=== PATIENT | female | born 1955 | race Caucasian/White ===

== ENCOUNTER 2023-07-11 18:01 | Observation (INO) | payer MEDICARE, OTHER ==
[~2023-07-11] VITALS: Ht 165.1 cm; Wt 64.0 kg
[2023-07-11] MEDS ORDERED: EPINEPHrine INJECTION 1 MG/ML AMP IM ONE (18:30)
[2023-07-11] MEDS ORDERED: dexAMETHasone INJ 10 MG/ML 1 ML VIAL IV ONE (18:30)
[2023-07-11] MEDS ORDERED: NS IV 1000 ML 1,000 ML IV STA (18:30)
[2023-07-11] MEDS ORDERED: FAMOTIDINE INJ 20MG/2ML VIAL IV STA (18:30)
[2023-07-11] MEDS ORDERED: diphenhydrAMINE INJ 50 MG/ML VIAL IV STA (18:30)
--- NOTE | 2023-07-11 18:37 | ED Integumentary General ---
General Chief Complaint: Allergic Reaction Stated Complaint: HIVES Nursing Triage Note: Patient c/o Rash to bilat. arms, thighs, back, and Abd. that started 2 days ago. Patient states the rash itches and states she has been taking Benadryl with not much relief. Patient states she had her last chemo Tx. 2 wks ago. Source: patient History of Present Illness Date Seen by Provider: Jul 11, 2023 Time Seen by Provider: 18:23 Initial Comments PT ARRIVES VIA POV FROM HOME C/O GENERALIZED HIVES X 2 DAYS HAS SWELLING TO HANDS AND FEET THROAT FEELS "BRUISED" WHEN SHE SWALLOWS, BUT IS ABLE TO SWALLOW. NO SWELLING TO FACE, LIPS OR TONGUE NO NAUSEA/VOMITING--SHE HAS BEEN EATING AND DRINKING WELL. HAS HAD SOME LIGHTHEADEDNESS BUT NO SYNCOPE NO SHORTNESS OF BREATH OR WHEEZING SHE HAS BEEN TAKING BENADRYL 50 MG EVERY 4 HOURS WITH MINIMAL RELIEF SHE WENT TO [facility] AND THEY SENT HER HERE NO HISTORY OF SIMILAR PT WAS DX WITH BREAST CANCER IN [facility] SHE HAS HAD RIGHT MASTECTOMY 04/27/23 SHE RECEIVED HER SECOND ROUND OF CHEMO 2 WEEKS AGO--SHE DID HAVE A REACTION DURING THE INFUSION--FACE GOT RED AND ITCHY AND SHE FELT DIZZY AND ALMOST PASSED OUT. THEY HELD IT FOR A LITTLE BIT, THEN EVENTUALLY FINISHED CHEMO SHE TAKES PREDNISONE RIGHT BEFORE AND RIGHT AFTER CHEMO SHE IS ALSO GETTING NEULASTA AFTER EACH CHEMO SESSION SHE DOES NOT KNOW WHAT HER LAST WBC COUNT WAS. SHE DOES NOT HAVE ANY OTHER MEDICAL PROBLEMS SHE TAKES VITAMINS DAILY AND HER PRE-AND POST-CHEMO MEDICATIONS. 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 Allergies and Home Medications Allergies Coded Allergies: No Known Drug Allergies (Unverified , 07/11/23) Review of Systems Review of Systems Constitutional: see HPI EENTM: see HPI Respiratory: no symptoms reported; No cough, No phlegm, No stridor, No wheezing Cardiovascular: no symptoms reported Gastrointestinal: no symptoms reported Genitourinary: no symptoms reported Musculoskeletal: see HPI Skin: see HPI Psychiatric/Neurological: No Symptoms Reported Endocrine: No Symptoms Reported Hematologic/Lymphatic: No Symptoms Reported Past Bdzlwio-Wczkiw-Bquclw Hx Patient Social History Tobacco Use?: No Use of E-Cig and/or Vaping dev: No Substance use?: No Alcohol Use?: Yes Alcohol Frequency: Once in a while Immunizations Up To Date Influenza Vaccine Up-to-Date: Yes; Up-to-Date Past Medical History Surgery/Hospitalization HX: Breast CA, GERD Rt. Masectomy Physical Exam Vital Signs Vital Signs - First Documented 07/11/23 18:10 Temp 37.3 Pulse 122 Resp 18 B/P (MAP) 113/73 (86) O2 Delivery Room Air Capillary Refill : General Appearance: WD/WN, no apparent distress, other (VERY ANXIOUS AND TREMULOUS; CONSTANTLY SCRATCHING ALL OVER) HEENT: PERRL/EOMI, pharynx normal, other (NO SWELLING TO FACE, OR ORAL MUCOSA BUT HAS MILD SWELLING TO LIPS--ESPECIALLY LOWER LIP. PT ABLE TO HANDLE SECRETIONS) Neck: normal inspection Cardiovascular: no murmur, tachycardia Respiratory: normal breath sounds, no respiratory distress, no accessory muscle use Gastrointestinal: non tender, soft Back: no CVA tenderness Extremities: normal range of motion, normal capillary refill, other (MODERATE SWELLING TO HANDS AND FEET) Neurologic/Psychiatric: special delivery messenger II-XII nml as tested, no motor/sensory deficits, alert, oriented x 3 Skin: warm/dry, rash (DIFFUSE URTICARIA, MAINLY TRUNK, THIGHS, ARMS, INCLUDING FEET/SOLES AND HANDS/PALMS. FACE AND SCALP ARE SPARED. ) Progress/Results/Core Measures Results/Orders Lab Results Laboratory Tests Test 07/11/23 18:38 07/11/23 19:05 07/11/23 19:18 07/11/23 19:22 Range/Units White Blood Count 37.5 *H 4.3-11.0 10^3/uL Red Blood Count 4.88 3.80-5.11 10^6/uL Hemoglobin 15.1 11.5-16.0 g/dL Hematocrit 45 35-52 % Mean Corpuscular Volume 92 80-99 fL Mean Corpuscular Hemoglobin 31 25-34 pg Mean Corpuscular Hemoglobin Concent 34 32-36 g/dL Red Cell Distribution Width 13.3 10.0-14.5 % Platelet Count 231 130-400 10^3/uL Mean Platelet Volume 9.4 9.0-12.2 fL Immature Granulocyte % (Auto) 6 % Neutrophils (%) (Auto) 83 H 42-75 % Lymphocytes (%) (Auto) 8 L 12-44 % Monocytes (%) (Auto) 3 0-12 % Eosinophils (%) (Auto) 0 0-10 % Basophils (%) (Auto) 0 0-10 % Neutrophils # (Auto) 31.3 H 1.8-7.8 10^3/uL Lymphocytes # (Auto) 2.9 1.0-4.0 10^3/uL Monocytes # (Auto) 1.0 0.0-1.0 10^3/uL Eosinophils # (Auto) 0.0 0.0-0.3 10^3/uL Basophils # (Auto) 0.0 0.0-0.1 10^3/uL Immature Granulocyte # (Auto) 2.3 H 0.0-0.1 10^3/uL Neutrophils % (Manual) 81 % Lymphocytes % (Manual) 10 % Monocytes % (Manual) 6 % Eosinophils % (Manual) 0 % Basophils % (Manual) 0 % Band Neutrophils 3 % Blood Morphology Comment NORMAL Sodium Level 137 135-145 MMOL/L Potassium Level 3.8 3.6-5.0 MMOL/L Chloride Level 105 98-107 MMOL/L Carbon Dioxide Level 20 L 21-32 MMOL/L Anion Gap 12 5-14 MMOL/L Blood Urea Nitrogen 11 7-18 MG/DL Creatinine 0.76 0.60-1.30 MG/DL Estimat Glomerular Filtration Rate 85 BUN/Creatinine Ratio 14 Glucose Level 177 H 70-105 MG/DL Calcium Level 8.8 8.5-10.1 MG/DL Corrected Calcium 9.0 8.5-10.1 MG/DL Magnesium Level 2.0 1.6-2.4 MG/DL Total Bilirubin 0.3 0.1-1.0 MG/DL Aspartate Amino Transf (AST/SGOT) 18 5-34 U/L Alanine Aminotransferase (ALT/SGPT) 16 0-55 U/L Alkaline Phosphatase 152 H 40-136 U/L Total Protein 6.2 L 6.4-8.2 GM/DL Albumin 3.8 3.2-4.5 GM/DL My Orders Orders - FABIOLA SLATER DO Ed Iv/Invasive Line Start (07/11/23 18:30) Monitor-Rhythm Ecg Trace Only (07/11/23 18:30) Cbc With Automated Diff (07/11/23 18:30) Comprehensive Metabolic Panel (07/11/23 18:30) Magnesium (07/11/23 18:30) Diphenhydramine Injection (Diphenhydram (07/11/23 18:30) Dexamethasone Injection (Dexamethasone (07/11/23 18:30) Ns Iv 1000 Ml (Ns Iv 1000 Ml) (07/11/23 18:30) Famotidine Injection (Famotidine Injec (07/11/23 18:30) Epinephrine 1 Mg Injection (Epinephrine (07/11/23 18:30) Manual Differential (07/11/23 18:38) Covid 19 Inhouse Test (07/11/23 18:51) Blood Culture (07/11/23 18:51) Urinalysis (07/11/23 18:51) Urine Culture (07/11/23 18:51) Protime With Inr (07/11/23 18:51) Partial Thromboplastin Time (07/11/23 18:51) Chest 1 View, Ap/Pa Only (07/11/23 18:51) Ed Iv/Invasive Line Start (07/11/23 18:51) Ed Iv/Invasive Line Start (07/11/23 18:51) Vital Signs Adult Sepsis Patie Q15M (07/11/23 18:51) O2 (07/11/23 18:51) Remove Rings In Anticipation O (07/11/23 18:51) Lactic Acid Analyzer (07/11/23 18:51) Influenza A And B By Pcr (07/11/23 18:51) Medications Given in ED Current Medications Medications Dose Ordered Sig/Marcella Route Start Time Stop Time Status Last Admin Dose Admin Dexamethasone Sodium Phosphate 20 mg ONCE ONCE IV 07/11/23 18:30 07/11/23 18:32 DC 07/11/23 18:43 20 MG Epinephrine HCl 0.3 mg ONCE ONCE IM 07/11/23 18:30 07/11/23 18:32 DC 07/11/23 18:42 0.3 MG Vital Signs/I&O 07/11/23 07/11/23 18:10 18:42 Temp 37.3 Pulse 122 113 Resp 18 B/P (MAP) 113/73 (86) 111/77 O2 Delivery Room Air Blood Pressure Mean: 86 Progress Progress Note : Progress Note VITALS ON ARRIVAL : TEMP 37.3=99.2,, HR122, RR 18, BP 113/73, O2 SAT 99% ON ROOM AIR GIVEN: -DECADRON -BENADRYL -PEPCID -EPINEPHRINE -IV FLUIDS Diagnostic Imaging Comments CXR--PER RADIOLOGIST REPORT AT 1928 Findings: No focal airspace disease in the visualized lungs. No pleural effusion or pneumothorax. Normal cardiomediastinal silhouette. Impression: 1. No acute cardiopulmonary process by portable radiography. Reviewed: Reviewed by Me Departure Impression Primary Impression: Urticaria Additional Impressions: BREAST CANCER ON CHEMO Leukocytosis NEULASTA THERAPY Departure-Patient Inst. Referrals: RUEL BAKER APRN (PCP) Primary Care Physician FABIOLA SLATER DO Jul 11, 2023 18:37
[2023-07-11 18:49] LABS: BASOPHILS % (AUTO) 0 % (0-10); EOSINOPHILS % (AUTO) 0 % (0-10); HEMATOCRIT 45 % (35-52); HEMOGLOBIN 15.1 g/dL (11.5-16.0); LYMPHOCYTES # (AUTO) 2.9 10^3/uL (1.0-4.0); LYMPHOCYTES % (AUTO) 8 % (12-44); MEAN CORPUSCULAR HEMOGLOBIN 31 pg (25-34); MEAN CORPUSCULAR HGB CONC 34 g/dL (32-36); MEAN CORPUSCULAR VOLUME 92 fL (80-99); MEAN PLATELET VOLUME 9.4 fL (9.0-12.2); MONOCYTES % (AUTO) 3 % (0-12); NEUTROPHILS # (AUTO) 31.3 10^3/uL (1.8-7.8); NEUTROPHILS % (AUTO) 83 % (42-75); PLATELET COUNT 231 10^3/uL (130-400)
[2023-07-11 18:50] LABS: WHITE BLOOD COUNT 37.5 10^3/uL (4.3-11.0)
[2023-07-11 19:03] LABS: BAND NEUTROPHILS 3 %; BASOPHILS % (MANUAL) 0 %; EOSINOPHILS % (MANUAL) 0 %; LYMPHOCYTES % (MANUAL) 10 %; MONOCYTES % (MANUAL) 6 %; NEUTROPHILS % (MANUAL) 81 %; RBC MORPH NORMAL
[2023-07-11 19:04] LABS: ALBUMIN 3.8 GM/DL (3.2-4.5); BILIRUBIN,TOTAL 0.3 MG/DL (0.1-1.0); CALCIUM 8.8 MG/DL (8.5-10.1); CREATININE SERUM 0.76 MG/DL (0.60-1.30); POTASSIUM 3.8 MMOL/L (3.6-5.0); TOTAL PROTEIN 6.2 GM/DL (6.4-8.2)
--- NOTE | 2023-07-11 19:10 | Diagnostic Imaging Report ---
CHEST 1 VIEW, AP/PA ONLY Indication: Leukocytosis on chemotherapy Comparison: None available. Findings: No focal airspace disease in the visualized lungs. No pleural effusion or pneumothorax. Normal cardiomediastinal silhouette. Impression: 1. No acute cardiopulmonary process by portable radiography. Dictated by: Dictated on workstation # [id number]
[2023-07-11 19:36] LABS: BILIRUBIN,URINE NEGATIVE (NEGATIVE); CLARITY,URINE CLEAR; COLOR,URINE YELLOW; GLUCOSE, URINE (UA) NEGATIVE (NEGATIVE); KETONES,URINE TRACE (NEGATIVE); LEUKOCYTE ESTERASE ,URINE TRACE (NEGATIVE); NITRITE,URINE NEGATIVE (NEGATIVE); PROTEIN,URINE 1+ (NEGATIVE)
[2023-07-11 19:37] LABS: BACTERIA,URINE FEW /HPF; SQUAMOUS EPITHELIAL CELL,UR 0-2 /HPF
[2023-07-11] MEDS ORDERED: CEFEPIME INJECTION 1,000 MG in NS (IVPB) 50 ML 50 ML IV ONE (19:45)
[2023-07-11] MEDS ORDERED: LORazepam 0.5 MG TABLET PO PRN (21:30)
[2023-07-11] MEDS ORDERED: hydrOXYzine 25 MG CAPSULE PO PRN (21:30)
[2023-07-11] MEDS ORDERED: NS IV 500 ML 500 ML IV PRN (21:30)
[2023-07-11] MEDS ORDERED: ANTACID SUSPENSION 30 ML UDC PO PRN (21:30)
[2023-07-11] MEDS ORDERED: ACETAMINOPHEN 325 MG TABLET PO PRN (21:30)
[2023-07-11] MEDS ORDERED: ONDANSETRON 4 MG ORAL DISSOLVE TABLET PO PRN (21:30)
[2023-07-11] MEDS ORDERED: BISACODYL 10 MG SUPPOSITORY PR PRN (21:30)
[2023-07-11] MEDS ORDERED: LACTULOSE SYRUP 10GM/15ML 30ML UDC PO PRN (21:30)
[2023-07-11] MEDS ORDERED: ONDANSETRON INJECTION 4 MG/2 ML (SDV) IV PRN (21:30)
[2023-07-11] MEDS ORDERED: MELATONIN 3 MG TABLET PO PRN (21:30)
[2023-07-11] MEDS ORDERED: CALCIUM CARBONATE 500 MG CHEW TABLET PO PRN (21:30)
[2023-07-11] MEDS ORDERED: diphenhydrAMINE INJ 50 MG/ML VIAL IVP SCH (21:30)
[2023-07-11] MEDS ORDERED: MILK OF MAGNESIA 400 MG/5 ML 30 ML UDC PO PRN (21:30)
[2023-07-11] MEDS ORDERED: HYDROmorphone INJECTION 2 MG/ML VIAL IV PRN (21:30)
[2023-07-11] MEDS ORDERED: oxyCODONE IMMEDIATE RELEASE 5 MG TABLET PO PRN (21:30)
--- NOTE | 2023-07-11 21:33 | Tele-ICU Consult ---
History of Present Illness History of Present Illness Date Seen by Provider: Jul 11, 2023 Time Seen by Provider: 21:26 History of Present Illness eICU Critical Care Consult 68 yo F came to ED with cc of generalized hives.also "bruised throat but is able to swallow. Does not have swelling of lips or tongue. No SOB, Has Hx of Breast Ca, getting chemo, also getting Neulasta. At home has been taking Benadryl 50 mg every 4 hours During last round of chemo infusion 2 weeks ago became flushed, had itching and light headed. Got prednisone before and after chemo\\ CXR showed no acute process, no eosinophilia No known drug allergies Other PMH GERD, Breast Ca Allergies and Home Medications Allergies Coded Allergies: No Known Drug Allergies (Unverified , 07/11/23) Past Medical/Social/Family Hx Patient Social History Tobacco Use?: No Use of E-Cig and/or Vaping dev: No Substance use?: No Alcohol Use?: Yes Alcohol Frequency: Once in a while Immunizations Up To Date Influenza Vaccine Up-to-Date: Yes; Up-to-Date Current Status Communicates: Verbally Primary Language: Beninese Preferred Spoken Language: Beninese Is interpretation needed?: No Implanted or Applied Medical D: None Review of Systems Constitutional: see HPI EENTM: see HPI Respiratory: see HPI Cardiovascular: see HPI Gastrointestinal: see HPI Genitourinary: see HPI Musculoskeletal: see HPI Skin: see HPI Psychiatric/Neurological: See HPI Focused Exam Lactate Level 07/11/23 19:05: Lactic Acid Level 2.30*H Height, Weight, BMI Height: '" Weight: lbs. oz. kg; 13.00 BMI Method: Lactic Acid Level Laboratory Tests Test 07/11/23 19:05 Lactic Acid Level 2.30 MMOL/L (0.50-2.00) *H Exam Exam Patient acknowledged, consented, and participated in this virtual visit which was conducted using real time audio/video Vital Signs Date Time Temp Pulse Resp B/P (MAP) Pulse Ox O2 Delivery O2 Flow Rate FiO2 07/11/23 20:49 37.3 107 18 106/74 95 Room Air 07/11/23 18:42 113 111/77 07/11/23 18:10 37.3 122 18 113/73 (86) Room Air Height & Weight Height: '" Weight: lbs. oz. kg; 13.00 BMI Method: General Appearance: Other (marked itching) HEENT: Other (ED note describes lower lip swelling but can swallow) Respiratory: Lungs Clear Cardiovascular: Regular Rate, Rhythm, Tachycardia Gastrointestinal: non tender, soft Skin: Rash Lymphatic: Other (rash on trunk, thighs, arms, feet and hands) Results Lab Laboratory Tests 07/11/23 18:38 Assessment/Plan Assessment/Plan DIffuse urticaria, from chemo? Getting Famotidine, Decadron IV, IV Benadyl, received a dose of IM epi, Getting IV Cefepime Spoke with RN, rash is looking better Critical Care: Critically Ill Patient Time spent with patient (mins): 25 TOR MYERS MD Jul 11, 2023 21:33
[2023-07-11] MEDS: NS IV 1000 ML 1,000 ML IV SCH (21:48)
[2023-07-11] MEDS: FAMOTIDINE INJ 20MG/2ML VIAL IVP SCH (22:17)
[2023-07-11 23:01] VITALS: BP 117/52
[2023-07-11] MEDS ORDERED: RT-Ipratropium/Albuterol NEB 3 ML VIAL INH PRN (23:15)
[2023-07-11] MEDS ORDERED: LACTATED RINGERS 1,000 ML 1,000 ML IV ONE (23:45)
[2023-07-11] MEDS: dexAMETHasone INJ 4 MG/ML SDV IV SCH (23:47)
--- NOTE | 2023-07-12 00:10 | Progress Note ---
Standard Progress Note Progress Notes/Assess & Plan Date Seen by a Provider: Jul 12, 2023 Time Seen by a Provider: 00:09 Progress/Assessment & Plan called for lactate 2.31, repeat 2.30, most likely from dehydration, will give 500 mL bolus of LR, repeat LA 2 hours after that TOR MYERS MD Jul 12, 2023 00:10
[2023-07-12] MEDS ORDERED: LACTATED RINGERS 1,000 ML 1,000 ML IV SCH ×2 (00:15→03:30)
[2023-07-12] MEDS: diphenhydrAMINE INJ 50 MG/ML VIAL IVP PRN (00:17)
[2023-07-12] MEDS ORDERED: LACTATED RINGERS 1,000 ML 500 ML IV ONE (00:30)
[2023-07-12 02:13] LABS: ALBUMIN 3.3 GM/DL (3.2-4.5); POTASSIUM 4.2 MMOL/L (3.6-5.0)
[2023-07-12 02:14] LABS: CALCIUM 8.4 MG/DL (8.5-10.1)
[2023-07-12 02:16] LABS: TOTAL PROTEIN 5.5 GM/DL (6.4-8.2)
[2023-07-12 02:17] LABS: BILIRUBIN,TOTAL 0.2 MG/DL (0.1-1.0)
[2023-07-12 02:19] LABS: CREATININE SERUM 0.66 MG/DL (0.60-1.30); PHOSPHORUS 1.9 MG/DL (2.3-4.7)
[2023-07-12 02:22] LABS: MAGNESIUM 1.8 MG/DL (1.6-2.4)
[2023-07-12 02:24] LABS: BASOPHILS % (AUTO) 0 % (0-10); EOSINOPHILS % (AUTO) 0 % (0-10); HEMATOCRIT 38 % (35-52); HEMOGLOBIN 12.7 g/dL (11.5-16.0); LYMPHOCYTES # (AUTO) 1.4 10^3/uL (1.0-4.0); LYMPHOCYTES % (AUTO) 4 % (12-44); MEAN CORPUSCULAR HEMOGLOBIN 31 pg (25-34); MEAN CORPUSCULAR HGB CONC 34 g/dL (32-36); MEAN CORPUSCULAR VOLUME 93 fL (80-99); MEAN PLATELET VOLUME 9.7 fL (9.0-12.2); MONOCYTES # (AUTO) 0.4 10^3/uL (0.0-1.0); MONOCYTES % (AUTO) 1 % (0-12); NEUTROPHILS # (AUTO) 33.7 10^3/uL (1.8-7.8); NEUTROPHILS % (AUTO) 90 % (42-75); PLATELET COUNT 178 10^3/uL (130-400)
[2023-07-12 02:26] LABS: WHITE BLOOD COUNT 37.6 10^3/uL (4.3-11.0)
--- NOTE | 2023-07-12 03:17 | Tele-ICU Progress Note ---
Subjective Date Seen by a Provider: Jul 12, 2023 Time Seen by a Provider: 03:14 Subjective/Events-last exam LA went up to 3.04, given bolus of LR, will give one more WBC 37, but could be due to many reasons, Got Neulasta, got IM epi, getting Decadron Pt appears comfortable on room air, P and BP normal, U/A 5-10 WBC's, On IV Cefepime will continue abx, give one more fluid bolus of LR Jaron Myers MD Sepsis Event Evaluation Height, Weight, BMI Height: '" Weight: lbs. oz. kg; 23.44 BMI Method: Focused Exam Lactate Level 07/11/23 19:05: Lactic Acid Level 2.30*H 07/11/23 21:52: Lactic Acid Level 2.31*H 07/12/23 01:56: Lactic Acid Level 3.04*H Lactic Acid Level Laboratory Tests Test 07/12/23 01:56 Lactic Acid Level 3.04 MMOL/L (0.50-2.00) *H Exam Exam Patient acknowledged, consented, and participated in this virtual visit which was conducted using real time audio/video Vital Signs Date Time Temp Pulse Resp B/P (MAP) Pulse Ox O2 Delivery O2 Flow Rate FiO2 07/12/23 02:00 77 15 109/70 (83) 96 Room Air 07/12/23 01:01 100 07/12/23 01:00 97 19 104/100 (101) 95 Room Air 07/12/23 00:00 89 19 105/81 (89) 95 Room Air 07/12/23 00:00 36.6 07/11/23 23:59 98 Room Air 07/11/23 23:01 37.0 90 98 21 07/11/23 23:00 89 18 108/66 (80) 95 Room Air 07/11/23 22:45 122 20 86/59 (68) 95 Room Air 07/11/23 22:30 111 24 110/70 (83) 95 Room Air 07/11/23 22:15 94 14 107/71 (83) 95 Room Air 07/11/23 22:00 37.2 90 16 117/52 (73) 98 Room Air 07/11/23 21:21 100 07/11/23 21:21 100 07/11/23 20:49 37.3 107 18 106/74 95 Room Air 07/11/23 18:42 113 111/77 07/11/23 18:10 37.3 122 18 113/73 (86) Room Air I & O 07/12/23 07:00 Intake Total 1450 ml Balance 1450 ml Height & Weight Height: '" Weight: lbs. oz. kg; 23.44 BMI Method: General Appearance: Other (marked itching) HEENT: Other (ED note describes lower lip swelling but can swallow) Respiratory: Lungs Clear Cardiovascular: Regular Rate, Rhythm, Tachycardia Gastrointestinal: non tender, soft Skin: Rash Lymphatic: Other (rash on trunk, thighs, arms, feet and hands) Results Lab Laboratory Tests 07/11/23 18:38 07/12/23 01:56 Assessment/Plan Assessment/Plan LA went up to 3.04, given bolus of LR, will give one more WBC 37, but could be due to many reasons, Got Neulasta, got IM epi, getting Decadron Pt appears comfortable on room air, P and BP normal, U/A 5-10 WBC's, On IV Cefepime will continue abx, give one more fluid bolus of LR Jaron Myers MD Critical Care: Critically Ill Patient Time spent with patient (mins): 20 TOR MYERS MD Jul 12, 2023 03:17
[2023-07-12] MEDS ORDERED: LACTATED RINGERS 1,000 ML 500 ML IV SCH (03:45)
[2023-07-12] MEDS: CEFEPIME INJECTION 1,000 MG in NS (IVPB) 50 ML 50 ML IV SCH ×3 (04:36→21:32)
[2023-07-12] MEDS: inSUlin ASPART 1 UNIT/0.01 ML (PER UNIT) SC SCH ×4 (05:05→21:32)
[2023-07-12] MEDS ORDERED: MAGNESIUM 1 GM/100 ML IVPB 100 ML IV SCH (06:00)
[2023-07-12] MEDS ORDERED: POTASSIUM CL 10MEQ/50ML IVPB 50 ML IV SCH (06:00)
[2023-07-12] MEDS ORDERED: POTASSIUM CHLORIDE 20 MEQ TABLET PO SCH (06:00)
[2023-07-12] MEDS: NS IV 1000 ML 1,000 ML IV SCH ×2 (06:04→09:41)
[2023-07-12] MEDS: dexAMETHasone INJ 4 MG/ML SDV IV SCH ×3 (06:04→17:33)
--- NOTE | 2023-07-12 06:25 | History & Physical-Hospitalist ---
History of Present Illness HPI/Chief Complaint Chief complaint: Severe urticaria possibly due to chemotherapy medication HPI this is a 68-year-old female with known breast cancer on chemotherapy who presented to the ER with severe urticaria requiring IV fluid IV steroids IV Pepcid and IV Benadryl. She had no signs of vasculitis. Her white blood cell count of 37,000 likely is from some sort of Neupogen or chemotherapy induced side effect. She did have evidence of a low level UTI cefepime was placed. Lactic acid elevation likely due to dehydration and allergic reaction not due to infectious causes. Currently she is doing much better cannot understand why she cannot go home today but I did tell her she can have rebound allergic reaction and urticaria. Source: patient Exam Limitations: no limitations Date Seen 07/12/23 Time Seen by a Provider: 11:00 Attending Physician Erica Castillo Aprn PCP Admitting Physician: Padmini Yi DO Attending Physician: Padmini Yi DO Referring Physician Date of Admission Jul 11, 2023 at 20:55 Home Medications & Allergies Home Medications Reviewed patient Home Medication Reconciliation performed by pharmacy medication reconciliations biometrics technician and/or nursing. Patients Allergies have been reviewed. Allergies Allergies Coded Allergies No Known Drug Allergies (Unverified07/11/23) Past Qgevayt-Ifddru-Mixztn Hx Patient Social History Marrital Status: Employed/Student: retired Tobacco Use?: No Smoking Status: Never a Smoker Use of E-Cig and/or Vaping dev: No Substance use?: No Alcohol Use?: Yes Alcohol Frequency: Once in a while Current Status Communicates: Verbally Primary Language: Irish Preferred Spoken Language: Irish Is interpretation needed?: No Implanted or Applied Medical D: None Past Medical History Breast Did You Recieve Any Treatments: Yes What Type of Treatment Did You: Chemotherapy Review of Systems Constitutional: see HPI, dizziness, malaise, weakness Skin: rash Physical Exam Physical Exam Vital Signs Vital Signs - First Documented 07/11/23 07/11/23 07/11/23 18:10 20:49 23:01 Temp 37.3 Pulse 122 Resp 18 B/P (MAP) 113/73 (86) Pulse Ox 95 O2 Delivery Room Air FiO2 21 Capillary Refill : Height, Weight, BMI Height: '" Weight: lbs. oz. kg; 23.44 BMI Method: General Appearance: Anxious, Mild Distress Eyes: Right Eye Normal Inspection, Right Eye PERRL HEENT: PERRL/EOMI, Normal ENT Inspection, Pharynx Normal, Moist Mucous Membranes Neck: Full Range of Motion, Normal Inspection, Non Tender Respiratory: Chest Non Tender, Lungs Clear, Normal Breath Sounds, No Accessory Muscle Use, No Respiratory Distress Cardiovascular: Regular Rate, Rhythm, No Edema, No Gallop, No JVD, No Murmur, Normal Peripheral Pulses Gastrointestinal: Normal Bowel Sounds, No Organomegaly, No Pulsatile Mass, Non Tender, Soft Back: Normal Inspection, No CVA Tenderness, No Vertebral Tenderness Extremity: Normal Capillary Refill, Normal Inspection, Normal Range of Motion, Non Tender, No Calf Tenderness, No Pedal Edema Neurologic/Psychiatric: Alert, Oriented x3, No Motor/Sensory Deficits, Normal Mood/Affect Skin: Normal Color, Warm/Dry, Rash (Urticaria legs and arms and torso) Lymphatic: No Adenopathy Results Results/Procedures Labs Laboratory Tests 07/11/23 18:38 07/12/23 01:56 Patient resulted labs reviewed. Assessment/Plan Admission Diagnosis Assessment: Severe urticaria likely due to breast cancer chemotherapy medication Anxiety Elevated white count likely due to some sort of Neupogen booster with chemotherapy treatment Early UTI Elevated lactic acid not due to sepsis or infectious causes Plan: Transfer to fourth floor Supportive care Hep-Lock IV fluid IV steroids along with IV Pepcid and scheduled Benadryl Admission Status: Observation PADMINI YI DO Jul 12, 2023 06:25
[2023-07-12] MEDS: DOCUSATE SODIUM 100 MG CAPSULE PO SCH ×2 (09:42→21:32)
[2023-07-12] MEDS: SENNOSIDES 8.6 MG TABLET PO SCH ×2 (09:42→21:32)
--- NOTE | 2023-07-12 10:04 | Tele-ICU Progress Note ---
Subjective Date Seen by a Provider: Jul 12, 2023 Time Seen by a Provider: 10:04 Subjective/Events-last exam (Tele-ICU Physician , Progress Note ) Service provided via interactive audio and video telecommunications E-CARE system to a patient admitted to ICU bed in [facility]. Patient is seen today due to persistent need of ICU care Available chart/ vitals / labs / Images reviewed Video assessment done using teleICU camera, rest of exam as per RN Discussed with RN Events overnight : Afebrile hemodynamically stable Respiratory - I/O = Drips: ns 125 Pressors- no Hospital course: (07/11) 68F Admitted for possible allergic reaction, possible sepsis ?UTI. Breast Cancer s/p mastectomy in April and last chemo 2wks ago--did have itchy face and almost passed out with last chemo. Benadryl not helping. Throat feels "bruised" when she swallows. On Neulasta A/P No SOB, Has Hx of Breast Ca, getting chemo, also getting Neulasta. At home has been taking Benadryl 50 mg every 4 hours During last round of chemo infusion 2 weeks ago became flushed, had itching and light headed. Got prednisone before and after chemo Now admitted with -DIffuse urticaria- received a dose of IM epi, steroids m benadryl , pepcid -CXR showed no acute process, no eosinophilia -from chemo? - improved this am , rash is looking better, no airway edema -cont Famotidine, ? decrease Decadron IV, prn Benadyl, received a dose of IM epi, Getting IV Cefepime UTI - cx pending - abx started stop IVF , PO OOB Lines : periph , (Central Line Necessity Reviewed) Delgado: void OG: Nutrition: po Analgesia: Anxiety/ delirium VTE Prophylaxis: anbulate Stress Ulcer Prophylaxis: na Plans in collaboration with bedside consultants and IM MDs. Discussed with RN to reach out if any questions or concerns Case and care daily discussed on multidisciplinary rounds ( RN, PharmD, Aquarist , Respiratory Therapy, ground worker ) A total of 15 minutes of critical care time was devoted to this patient today, required to treat and/or prevent further deterioration of critical care condition ( as above ) . I am remotely monitoring this patient from another state. I am unable to do the bedside exam, and history/physical and pertinent information is taken from other notes in the computer and bedside staff. Sepsis Event Evaluation Height, Weight, BMI Height: '" Weight: lbs. oz. kg; 23.44 BMI Method: Focused Exam Lactate Level 07/12/23 04:07: Lactic Acid Level 2.57*H 07/12/23 05:45: Lactic Acid Level 2.37*H 07/12/23 08:24: Lactic Acid Level 1.65 Lactic Acid Level Laboratory Tests Test 07/12/23 08:24 Lactic Acid Level 1.65 MMOL/L (0.50-2.00) Exam Exam Patient acknowledged, consented, and participated in this virtual visit which was conducted using real time audio/video Vital Signs Date Time Temp Pulse Resp B/P (MAP) Pulse Ox O2 Delivery O2 Flow Rate FiO2 07/12/23 10:00 107 27 187/95 (148) 98 Room Air 07/12/23 09:00 108 28 129/100 (112) 96 Room Air 07/12/23 08:00 36.3 07/12/23 08:00 76 9 129/78 (96) 92 Room Air 07/12/23 07:00 73 07/12/23 07:00 69 14 107/70 (86) 96 Room Air 07/12/23 06:00 70 21 108/71 (83) 95 Room Air 07/12/23 05:00 74 16 107/78 (88) 97 Room Air 07/12/23 04:00 36.8 07/12/23 04:00 70 10 95/66 (76) 94 Room Air 07/12/23 04:00 98 Room Air 07/12/23 03:00 74 19 104/68 (80) 96 Room Air 07/12/23 02:00 77 15 109/70 (83) 96 Room Air 07/12/23 01:01 100 07/12/23 01:00 97 19 104/100 (101) 95 Room Air 07/12/23 00:00 89 19 105/81 (89) 95 Room Air 07/12/23 00:00 36.6 07/11/23 23:59 98 Room Air 07/11/23 23:01 37.0 90 98 21 07/11/23 23:00 89 18 108/66 (80) 95 Room Air 07/11/23 22:45 122 20 86/59 (68) 95 Room Air 07/11/23 22:30 111 24 110/70 (83) 95 Room Air 07/11/23 22:15 94 14 107/71 (83) 95 Room Air 07/11/23 22:00 37.2 90 16 117/52 (73) 98 Room Air 07/11/23 21:21 100 07/11/23 21:21 100 07/11/23 20:49 37.3 107 18 106/74 95 Room Air 07/11/23 18:42 113 111/77 07/11/23 18:10 37.3 122 18 113/73 (86) Room Air I & O 07/12/23 07:00 Intake Total 1450 ml Balance 1450 ml Height & Weight Height: '" Weight: lbs. oz. kg; 23.44 BMI Method: General Appearance: Other (marked itching) HEENT: Other (ED note describes lower lip swelling but can swallow) Respiratory: Lungs Clear Cardiovascular: Regular Rate, Rhythm, Tachycardia Gastrointestinal: non tender, soft Skin: Rash Lymphatic: Other (rash on trunk, thighs, arms, feet and hands) Results Lab Laboratory Tests 07/11/23 18:38 07/12/23 01:56 Assessment/Plan Assessment/Plan 1 IGLESIA BUENROSTRO MD Jul 12, 2023 10:04
[2023-07-12] MEDS ORDERED: hydrALAZINE 25 MG TABLET PO PRN (11:00)
[2023-07-12] MEDS: MONTELUKAST 10 MG TABLET PO SCH (12:18)
[2023-07-12] MEDS: diphenhydrAMINE 25 MG TABLET PO PRN ×2 (12:18→17:33)
[2023-07-12 14:30] VITALS: BP 122/73
[2023-07-12 16:17] VITALS: BP 124/66
[2023-07-12 19:52] VITALS: BP 140/65
[2023-07-12] MEDS: FAMOTIDINE INJ 20MG/2ML VIAL IVP SCH (21:32)
[2023-07-13] VITALS: BP 138/65
[2023-07-13] MEDS: dexAMETHasone INJ 4 MG/ML SDV IV SCH ×3 (00:13→12:40)
[2023-07-13 03:17] VITALS: BP 126/64
[2023-07-13] MEDS: CEFEPIME INJECTION 1,000 MG in NS (IVPB) 50 ML 50 ML IV SCH ×2 (04:54→12:40)
[2023-07-13 05:41] LABS: BASOPHILS # (AUTO) 0.2 10^3/uL (0.0-0.1); BASOPHILS % (AUTO) 0 % (0-10); EOSINOPHILS % (AUTO) 0 % (0-10); HEMATOCRIT 32 % (35-52); HEMOGLOBIN 10.7 g/dL (11.5-16.0); LYMPHOCYTES # (AUTO) 1.9 10^3/uL (1.0-4.0); LYMPHOCYTES % (AUTO) 5 % (12-44); MEAN CORPUSCULAR HEMOGLOBIN 31 pg (25-34); MEAN CORPUSCULAR HGB CONC 33 g/dL (32-36); MEAN CORPUSCULAR VOLUME 93 fL (80-99); MONOCYTES # (AUTO) 1.1 10^3/uL (0.0-1.0); MONOCYTES % (AUTO) 3 % (0-12); NEUTROPHILS # (AUTO) 36.2 10^3/uL (1.8-7.8); NEUTROPHILS % (AUTO) 87 % (42-75); PLATELET COUNT 179 10^3/uL (130-400)
[2023-07-13] MEDS: inSUlin ASPART 1 UNIT/0.01 ML (PER UNIT) SC SCH ×2 (05:43→11:36)
[2023-07-13 05:46] LABS: WHITE BLOOD COUNT 41.5 10^3/uL (4.3-11.0)
[2023-07-13 05:54] LABS: ALBUMIN 3.3 GM/DL (3.2-4.5); POTASSIUM 4.2 MMOL/L (3.6-5.0)
[2023-07-13 05:55] LABS: CALCIUM 8.5 MG/DL (8.5-10.1)
[2023-07-13 05:56] LABS: TOTAL PROTEIN 5.4 GM/DL (6.4-8.2)
[2023-07-13 05:58] LABS: BILIRUBIN,TOTAL 0.2 MG/DL (0.1-1.0)
[2023-07-13 06:00] LABS: CREATININE SERUM 0.57 MG/DL (0.60-1.30)
[2023-07-13 06:03] LABS: MAGNESIUM 1.9 MG/DL (1.6-2.4)
[2023-07-13 08:19] VITALS: BP 147/78
[2023-07-13] MEDS: MONTELUKAST 10 MG TABLET PO SCH ×2 (09:36→09:38)
[2023-07-13] MEDS: DOCUSATE SODIUM 100 MG CAPSULE PO SCH (09:36)
[2023-07-13] MEDS: SENNOSIDES 8.6 MG TABLET PO SCH (09:36)
[2023-07-13] MEDS: diphenhydrAMINE INJ 50 MG/ML VIAL IVP PRN (09:44)
--- NOTE | 2023-07-13 10:28 | Discharge Summary ---
Diagnosis/Chief Complaint Date of Admission Jul 11, 2023 at 20:55 Date of Discharge 07/13/23 Discharge Summary-Simple/Stand Consultations Discharge Physical Examination Allergies: Coded Allergies: No Known Drug Allergies (Unverified , 07/11/23) Vitals & I&Os Vital Sign - Last 12Hours Date Time Temp Pulse Resp B/P (MAP) Pulse Ox O2 Delivery O2 Flow Rate FiO2 07/13/23 09:54 Room Air 07/13/23 08:19 35.8 107 16 147/78 (101) 97 07/13/23 07:30 0.00 07/11/23 23:01 21 Intake and Output 07/13/23 00:00 Intake Total 1950 ml Balance 1950 ml General Appearance: Alert, Oriented X3, No Acute Distress Respiratory: Clear to Auscultation, Normal Air Movement Cardiovascular: Regular Rate, No Murmurs Abdominal: Normal Bowel Sounds, Soft, No Tenderness Extremities: No Edema, No Tenderness/Swelling Neuro: Normal Speech, Cranial Nerves 3-12 NL Hospital Course See final discharge diagnosis. Discharge Instructions to patient/family Please see electronic discharge instructions given to patient. Discharge Medications Reviewed and agree with Discharge Medication list on patient's Discharge Ins truction sheet FRANCO LUNDY MD Jul 13, 2023 10:28
[2023-07-13] MEDS ORDERED: PANT40TA52 PO (10:50)
[2023-07-13] MEDS ORDERED: DEXA4TAB PO (10:50)
[2023-07-13] MEDS ORDERED: POTA99CA PO (10:50)
[2023-07-13] MEDS ORDERED: CALC-823 PO (10:51)
[2023-07-13] MEDS ORDERED: MULT-1136 PO (10:51)
[2023-07-13] MEDS ORDERED: MAGN400C PO (10:52)
[2023-07-13] MEDS ORDERED: ASCO-262 PO (10:52)
[2023-07-13 11:03] VITALS: BP 133/69
[2023-07-13] MEDS ORDERED: FAMO40TA6 PO (11:22)
[2023-07-13] MEDS ORDERED: MONT-40 PO (11:22)
[2023-07-13] MEDS ORDERED: DIPH25TA27 PO (11:22)
[2023-07-13] MEDS ORDERED: PRD50T PO (11:22)
--- NOTE | 2023-07-13 11:22 | Discharge Summary ---
Discharge [facility] Reconcile Patient Problems Problems Reviewed?: Yes Discharge Medications New, Converted or Re-Newed RX: Transmitted to Pharmacy New Medications: Famotidine (Famotidine) 40 Mg Tablet 40 MG PO DAILY, #14 TAB Prednisone (Prednisone) 50 Mg Tab 50 MG PO DAILY for 4 Days, #4 TAB Diphenhydramine HCl (Banophen) 25 Mg Tablet 25 MG PO Q6H PRN for ITCHING AND RASH, #30 TAB Montelukast Sodium (Montelukast Sodium) 10 Mg Tablet 10 MG PO DAILY@0900, #14 TAB Continued Medications: Ascorbate Calcium (Vitamin C) 500 Mg Tablet 500 MG PO DAILY, TAB Calcium Carbonate (Calcium) 500 Mg Calcium (1250 Mg) Tablet 500 MG PO DAILY, TAB Dexamethasone (Dexamethasone) 4 Mg Tablet 8 MG PO BID TAKES 2 (4MG) TABS, DAY OF, DAY BEFORE, AND DAY AFTER CHEMO Magnesium Oxide (Magnesium) 400 Mg Magnesium Capsule 400 MG PO DAILY, CAP Multivitamin (Multivitamin) 1 Each Tablet 1 EACH PO DAILY, TAB Pantoprazole Sodium (Pantoprazole Sodium) 40 Mg Tablet.dr 40 MG PO 1300 Potassium Citrate (Potassium) 99 Mg Capsule 99 MG PO DAILY, CAP Activity & Diet Discharge Diet: No Restrictions Activity as Tolerated: Yes FRANCO LUNDY MD Jul 13, 2023 10:29
== END 2023-07-13 12:40 | disposition home or self-care (01) ==
LOC: ER 18:06 → INTOOBSV 20:55 → ICU 20:55 → 4TH 07-12 13:48
PROVIDERS: ADMIT Internal Medicine; ATTEND Family Medicine
DX: L50.9 Urticaria, unspecified (principal); C50.919 Malignant neoplasm of unspecified site of unspecified female breast; N39.0 Urinary tract infection, site not specified; D72.829 Elevated white blood cell count, unspecified; R74.02 Elevation of levels of lactic acid dehydrogenase [LDH]; F41.9 Anxiety disorder, unspecified; Z79.899 Other long term (current) drug therapy
CPT/HCPCS: 36415; 71045; 80053; 81000; 82947; 83605; 83735; 84100; 85007; 85025; 85027; 87040; 87081; 87088; 87636; 93041; 94760; 96361; 96366; 96376; G0378

== ENCOUNTER → 2023-07-31 | Outpatient (CLI) | payer MEDICARE, OTHER ==
[~2023-07-31] MED LIST: ASCO-262 PO; CALC-823 PO; DEXA4TAB PO; DIPH25TA27 PO; FAMO40TA6 PO; MAGN400C PO; MONT-40 PO; MULT-1136 PO; PANT40TA52 PO; POTA99CA PO; PRD50T PO
== END ==
LOC: CARD 09:30
PROVIDERS: ATTEND Internal Medicine Hematology & Oncology
DX: I35.1 Nonrheumatic aortic (valve) insufficiency (principal); C50.919 Malignant neoplasm of unspecified site of unspecified female breast; Z79.899 Other long term (current) drug therapy
CPT/HCPCS: 93306

== ENCOUNTER 2023-08-04 10:01 | Outpatient (RCR) | payer MEDICARE, OTHER ==
[~2023-08-04] VITALS: Wt 64.0 kg
[2023-08-04 10:05] VITALS: BP 142/81
--- NOTE | 2023-08-04 11:33 | Diagnostic Imaging Report ---
CHEST 1 VIEW, AP/PA ONLY Indication: PICC placement Comparison: None available. Findings: No focal airspace disease in the visualized lungs. No pleural effusion or pneumothorax. Normal cardiomediastinal silhouette. Left PICC has tip terminating in the mid SVC. Impression: 1. Well-positioned left PICC. Dictated by: Dictated on workstation # [id number]
== END 2023-08-15 | disposition home or self-care (01) ==
LOC: SDC 10:01
PROVIDERS: ATTEND Internal Medicine Hematology & Oncology
DX: Z45.2 Encounter for adjustment and management of vascular access device (principal); C50.919 Malignant neoplasm of unspecified site of unspecified female breast
CPT/HCPCS: 36569; 71045; 76937; C1751

== ENCOUNTER 2023-09-14 09:53 | Outpatient (RCR) | payer MEDICARE, OTHER | END 2023-09-15 | disposition home or self-care (01) | LOC: ONC 09:53 | PROVIDERS: ATTEND Radiology Radiation Oncology | DX: C50.311 Malignant neoplasm of lower-inner quadrant of right female breast (principal); Z17.0 Estrogen receptor positive status [ER+] | CPT/HCPCS: 99205 ==

== ENCOUNTER → 2023-10-15 | Outpatient (RCR) | payer MEDICARE, OTHER | END | disposition home or self-care (01) | LOC: ONC 09-22 09:01 | PROVIDERS: ATTEND Radiology Radiation Oncology | DX: Z51.0 Encounter for antineoplastic radiation therapy (principal); C50.311 Malignant neoplasm of lower-inner quadrant of right female breast; Z17.0 Estrogen receptor positive status [ER+] | CPT/HCPCS: 77280; 77290; 77295; 77300; 77332; 77334; 77336; 77417; 77470 ==